=== PATIENT | female | born 1990 | race American Indian/Alaskan Native ===

== ENCOUNTER 2016-12-27 14:30 | Emergency (ER) | payer MEDICAID ==
[2016-12-27] MEDS ORDERED: MOTRIN PO ONE (20:46)
[2016-12-27] MEDS ORDERED: AUGMENTIN 875 MG PO ONE (20:46)
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
[2016-12-27 21:13] VITALS: BP 110/70
== END 2016-12-27 21:13 | disposition home or self-care (01) ==
LOC: ED 14:30
DX: S61.452A Open bite of left hand, initial encounter (principal); L65.8 Other specified nonscarring hair loss; Y04.1XXA Assault by human bite, initial encounter; Y93.89 Activity, other specified; Y99.8 Other external cause status; Y92.89 Other specified places as the place of occurrence of the external cause
CPT/HCPCS: 99282

== ENCOUNTER 2017-03-12 09:06 | Emergency (ER) | payer MEDICAID ==
[2017-03-12 09:19] VITALS: BP 106/70
== END 2017-03-12 11:44 | disposition home or self-care (01) ==
LOC: ED 09:06
DX: J32.9 Chronic sinusitis, unspecified (principal); J30.9 Allergic rhinitis, unspecified
CPT/HCPCS: 99282

== ENCOUNTER 2017-10-10 12:07 | Emergency (ER) | payer MEDICAID ==
[2017-10-10] MEDS ORDERED: DUONEB *Not for PRN Use IH ONE (12:50)
--- NOTE | 2017-10-10 14:34 | Emergency Department Report ---
ED N/V/D HPI - General Chief complaint: Nausea/Vomiting/Diarrhea Stated complaint: ALCOHOL POISON Time Seen by Provider: 10/10/17 14:13 Source: patient Mode of arrival: Ambulatory Limitations: No Limitations - History of Present Illness Initial comments: Patient here report nausea and vomiting 24 hours. She said she had alcohol to drink and she woke up this morning with more nausea and she is vomiting greenish drainage that feels better and her mouth. She also reports that she has a headache. Pain is located to the front of her head and comes and goes worse with vomiting. Denies any abdominal pain or back pain. Denies any urinary burning frequency or urgency. Last menstrual period was 09/17/2017. Denies any chest pain or shortness of breath. Denies any cough. Denies any head injury. Patient denies any medical problems. Pain is 4 out of 10. No [id number] condition taken for nausea . MD complaint: nausea, vomiting Onset/Timin -: days(s) Description of Vomiting: bilious Associated Abdominal Pain: No (headache) Radiation: none Severity: mild Pain Scale: 4 Quality: aching Consistency: intermittent Improves with: none Worsens with: none Context: alcohol abuse Associated Symptoms: headaches, loss of appetite, nausea/vomiting. denies: myalgias, chest pain, cough, diaphoresis, fever/chills, malaise, rash, dysuria, shortness of breath, syncope, weakness - Related Data Previous Rx's Medication Instructions Recorded Last Taken Type Vit-Fe Fumar-FA [ 1 each PO QDAY #90 tablet 11/30/14 Unknown Rx Vitamin] Acetaminophen/Codeine [Tylenol #3] 1 tab PO Q6H PRN #8 tab 12/27/16 Unknown Rx Amoxicillin/K Clav Tab [Augmentin 1 tab PO Q12HR #14 tab 12/27/16 Unknown Rx 875 mg] Ibuprofen [Motrin] 600 mg PO Q8H PRN #20 tablet 12/27/16 Unknown Rx Amoxicillin/K Clav Tab [Augmentin 1 tab PO Q12HR #20 tab 03/12/17 Unknown Rx 875 mg] Fluticasone [Flonase] 1 spray NS QDAY #1 bottle 03/12/17 Unknown Rx Ibuprofen [Motrin 800 MG tab] 800 mg PO Q8HR PRN #30 tablet 03/12/17 Unknown Rx Loratadine 10 mg PO DAILY #30 tablet 03/12/17 Unknown Rx Metoclopramide [Reglan] 10 mg PO TID PRN #30 tab 03/12/17 Unknown Rx Dicyclomine [Bentyl] 40 mg PO TID 3 Days #9 tablet 10/10/17 Unknown Rx Nitrofurantoin Monohyd/M-Cryst 100 mg PO Q12H 7 Days #14 capsule 10/10/17 Unknown Rx [Macrobid 100 mg Capsule] Promethazine [Phenergan TAB] 25 mg PO Q6H PRN 4 Days #12 tablet 10/10/17 Unknown Rx Allergies Allergy/AdvReac Type Severity Reaction Status Date / Time No Known Allergies Allergy Verified 11/30/14 10:43 ED Review of Systems ROS: Stated complaint: ALCOHOL POISON Other details as noted in HPI Comment: All other systems reviewed and negative Constitutional: no symptoms reported Eyes: denies: eye pain, eye discharge ENT: denies: ear pain, throat pain, congestion Respiratory: no symptoms reported Cardiovascular: denies: chest pain, palpitations, dyspnea on exertion, orthopnea , edema, syncope, paroxysmal nocturnal dyspnea Gastrointestinal: nausea, vomiting. denies: abdominal pain, diarrhea, constipation, hematemesis, melena, hematochezia Genitourinary: denies: urgency, dysuria, frequency, hematuria, discharge Musculoskeletal: denies: back pain, joint swelling, arthralgia, myalgia Skin: denies: rash Neurological: headache. denies: weakness, numbness, paresthesias, confusion, abnormal gait, vertigo ED Past Medical Hx - Past Medical History Previous Medical History?: No Hx Hypertension: No Hx CVA: No Hx Heart Attack/AMI: No Hx Congestive Heart Failure: No Hx Diabetes: No Hx Deep Vein Thrombosis: No Hx Pulmonary Embolism: No Hx GERD: No Hx Liver Disease: No Hx Renal Disease: No Hx of Cancer: No Hx Sickle Cell Disease: No Hx Arthritis: No Hx Headaches / Migraines: No Hx Seizures: No Hx Psychiatric Treatment: No Hx Asthma: No Hx COPD: No Hx Tuberculosis: No Hx Dementia: No Hx HIV: No - Surgical History Past Surgical History?: No Hx Coronary Stent: No Hx Open Heart Surgery: No Hx Pacemaker: No Hx Internal Defibrillator: No Hx Cholecystectomy: No Hx Appendectomy: No Hx Breast Surgery: No - Social History Smoking Status: Never Smoker Substance Use Type: Alcohol - Medications Home Medications: Home Medications Medication Instructions Recorded Confirmed Last Taken Type Vit-Fe Fumar-FA [ 1 each PO QDAY #90 tablet 11/30/14 Unknown Rx Vitamin] Acetaminophen/Codeine [Tylenol #3] 1 tab PO Q6H PRN #8 tab 12/27/16 Unknown Rx Amoxicillin/K Clav Tab [Augmentin 1 tab PO Q12HR #14 tab 12/27/16 Unknown Rx 875 mg] Ibuprofen [Motrin] 600 mg PO Q8H PRN #20 tablet 12/27/16 Unknown Rx Amoxicillin/K Clav Tab [Augmentin 1 tab PO Q12HR #20 tab 03/12/17 Unknown Rx 875 mg] Fluticasone [Flonase] 1 spray NS QDAY #1 bottle 03/12/17 Unknown Rx Ibuprofen [Motrin 800 MG tab] 800 mg PO Q8HR PRN #30 tablet 03/12/17 Unknown Rx Loratadine 10 mg PO DAILY #30 tablet 03/12/17 Unknown Rx Metoclopramide [Reglan] 10 mg PO TID PRN #30 tab 03/12/17 Unknown Rx Dicyclomine [Bentyl] 40 mg PO TID 3 Days #9 tablet 10/10/17 Unknown Rx Nitrofurantoin Monohyd/M-Cryst 100 mg PO Q12H 7 Days #14 capsule 10/10/17 Unknown Rx [Macrobid 100 mg Capsule] Promethazine [Phenergan TAB] 25 mg PO Q6H PRN 4 Days #12 tablet 10/10/17 Unknown Rx ED Physical Exam - General Limitations: No Limitations General appearance: alert, in no apparent distress - Head Head exam: Present: atraumatic, normocephalic, normal inspection, other (normal head exam) - Eye Eye exam: Present: normal appearance, PERRL, EOMI. Absent: nystagmus, periorbital swelling, periorbital tenderness Pupils: Present: normal accommodation - ENT ENT exam: Present: normal exam, normal orophraynx, mucous membranes dry, TM's normal bilaterally, normal external ear exam - Neck Neck exam: Present: normal inspection, full ROM, other (no C-spine tenderness). Absent: tenderness, meningismus, lymphadenopathy, thyromegaly - Respiratory Respiratory exam: Present: normal lung sounds bilaterally. Absent: respiratory distress, chest wall tenderness, accessory muscle use - Cardiovascular Cardiovascular Exam: Present: regular rate, normal rhythm, normal heart sounds. Absent: systolic murmur, diastolic murmur - GI/Abdominal GI/Abdominal exam: Present: soft, normal bowel sounds. Absent: distended, tenderness, rigid, organomegaly, mass, bruit, pulsatile mass - Extremities Exam Extremities exam: Present: normal inspection, full ROM, normal capillary refill , other (+2+ systolic extremities. No neurovascular compromise. No clubbing, cyanosis or edema.). Absent: tenderness, pedal edema, joint swelling, calf tenderness - Back Exam Back exam: Present: normal inspection, full ROM, other (ambulates without any difficulties). Absent: tenderness, CVA tenderness (R), CVA tenderness (L), muscle spasm, paraspinal tenderness, vertebral tenderness, rash noted - Neurological Exam Neurological exam: Present: alert, oriented X3, normal gait, reflexes normal. Absent: motor sensory deficit - Expanded Neurological Exam Expanded Neurological exam: Absent: innattentive, memory loss-remote event, memory loss- recent event, ataxia, receptive aphasia, expressive aphasia, total aphasia, tremor, protecting the airway Patient oriented to: Present: person, place, time Speech: Present: fluid speech Cranial nerves: EOM's Intact: Normal, Gag Reflex: Normal, Tongue Deviation: Normal, Nystagmus: Normal, Facial Sensation: Normal Cerebellar function: Romberg: Normal Upper motor neuron: Pronator Drift: Normal, Sensory Extinction: Normal Sensory exam: Upper Extremity Light Touch: Normal, Upper Extremity Temperature: Normal, UE 2 Point Discrimination: Normal, Lower Extremity Light Touch: Normal, Lower Extremity Temperature: Normal, LE 2 Point Discrimination: Normal Motor strength exam: RUE: 5, LUE: 5, RLE: 5, LLE: 5 DTR: bicep (R): 2+, bicep (L): 2+, tricep (R): 2+, tricep (L): 2+, knee (R): 2+ , knee (L): 2+, ankle (R): 2+, ankle (L): 2+ Best Eye Response ([place]): (4) open spontaneously Best Motor Response ([place]): (6) obeys commands Best Verbal Response ([place]): (5) oriented Gas[place] Total: 15 - Psychiatric Psychiatric exam: Present: normal affect, normal mood - Skin Skin exam: Present: warm, dry, intact, normal color. Absent: rash ED Course Vital Signs 10/10/17 10/10/17 10/10/17 12:36 14:50 15:43 Temperature 98.2 F Pulse Rate 88 71 Respiratory 16 18 16 Rate Blood Pressure 108/65 98/56 Blood Pressure [Left] Blood Pressure 108/65 [Right] O2 Sat by Pulse 100 100 Oximetry 10/10/17 17:06 Temperature Pulse Rate Respiratory Rate Blood Pressure Blood Pressure 110/68 [Left] Blood Pressure [Right] O2 Sat by Pulse Oximetry Vital Signs 10/10/17 10/10/17 10/10/17 12:36 14:50 15:43 Temperature 98.2 F Pulse Rate 88 71 Respiratory 16 18 16 Rate Blood Pressure 108/65 98/56 Blood Pressure [Left] Blood Pressure 108/65 [Right] O2 Sat by Pulse 100 100 Oximetry 10/10/17 17:06 Temperature Pulse Rate Respiratory Rate Blood Pressure Blood Pressure 110/68 [Left] Blood Pressure [Right] O2 Sat by Pulse Oximetry - Reevaluation(s) Reevaluation #1: 10/10/17 17:07 Patient given IV fluids 1 L normal saline emergency room, Zofran 4 mg IV, Bentyl 20 mg by mouth and Tylenol plain 975 mg by mouth in emergency room. She says she is feeling better. Nausea and vomiting resolved and headache has resolved. Patient is tolerating crackers and oral liquids in emergency room without any vomiting. Patient with trace leukocyte Estrace and 1+ bacteria in urine, CBC and CMP is stable. Negative . ED Medical Decision Making - Lab Data Result diagrams: 10/10/17 14:41 10/10/17 14:41 Lab Results 10/10/17 10/10/17 10/10/17 Range/Units 14:30 14:41 14:41 WBC 5.8 (4.5-11.0) K/mm3 RBC 5.13 H (3.65-5.03) M/mm3 Hgb 13.7 (10.1-14.3) gm/dl Hct 42.0 (30.3-42.9) % MCV 82 (79-97) fl MCH 27 L (28-32) pg MCHC 33 (30-34) % RDW 14.2 (13.2-15.2) % Plt Count 254 (140-440) K/mm3 Lymph % (Auto) 51.7 H (13.4-35.0) % [place] % (Auto) 8.0 H (0.0-7.3) % Eos % (Auto) 0.8 (0.0-4.3) % Baso % (Auto) 1.3 (0.0-1.8) % Lymph # 3.0 (1.2-5.4) K/mm3 [place] # 0.5 (0.0-0.8) K/mm3 Eos # 0.0 (0.0-0.4) K/mm3 Baso # 0.1 (0.0-0.1) K/mm3 Seg Neutrophils % 38.2 L (40.0-70.0) % Seg Neutrophils # 2.2 (1.8-7.7) K/mm3 Sodium 143 (137-145) mmol/L Potassium 4.5 (3.6-5.0) mmol/L Chloride 104.0 (98-107) mmol/L Carbon Dioxide 26 (22-30) mmol/L Anion Gap 18 mmol/L BUN 13 (7-17) mg/dL Creatinine 0.6 L (0.7-1.2) mg/dL Estimated GFR > 60 ml/min BUN/Creatinine Ratio 22 % Glucose 81 (65-100) mg/dL Calcium 9.3 (8.4-10.2) mg/dL Total Bilirubin 0.20 (0.1-1.2) mg/dL AST 38 (5-40) units/L ALT 25 (7-56) units/L Alkaline Phosphatase 67 (35-129) units/L Total Protein 8.1 (6.3-8.2) g/dL Albumin 4.7 (3.9-5) g/dL Albumin/Globulin Ratio 1.4 % Lipase 28 (13-60) units/L HCG, Qual (Negative) Urine Color Yellow (Yellow) Urine Turbidity Clear (Clear) Urine pH 7.0 (5.0-7.0) Ur Specific [place] 1.027 (1.003-1.030) Urine Protein 100 mg/dl (Negative) mg/dL Urine Glucose (UA) Neg (Negative) mg/dL Urine Ketones Tr (Negative) mg/dL Urine Blood Neg (Negative) Urine Nitrite Neg (Negative) Urine Bilirubin Neg (Negative) Urine Urobilinogen < 2.0 (<2.0) mg/dL Ur Leukocyte Esterase Tr (Negative) Urine WBC (Auto) 2.0 (0.0-6.0) /HPF Urine RBC (Auto) 2.0 (0.0-6.0) /HPF U Epithel Cells (Auto) 4.0 (0-13.0) /HPF Urine Bacteria (Auto) 1+ (Negative) /HPF Urine Mucus Few /HPF 10/10/17 Range/Units 14:41 WBC (4.5-11.0) K/mm3 RBC (3.65-5.03) M/mm3 Hgb (10.1-14.3) gm/dl Hct (30.3-42.9) % MCV (79-97) fl MCH (28-32) pg MCHC (30-34) % RDW (13.2-15.2) % Plt Count (140-440) K/mm3 Lymph % (Auto) (13.4-35.0) % [place] % (Auto) (0.0-7.3) % Eos % (Auto) (0.0-4.3) % Baso % (Auto) (0.0-1.8) % Lymph # (1.2-5.4) K/mm3 [place] # (0.0-0.8) K/mm3 Eos # (0.0-0.4) K/mm3 Baso # (0.0-0.1) K/mm3 Seg Neutrophils % (40.0-70.0) % Seg Neutrophils # (1.8-7.7) K/mm3 Sodium (137-145) mmol/L Potassium (3.6-5.0) mmol/L Chloride (98-107) mmol/L Carbon Dioxide (22-30) mmol/L Anion Gap mmol/L BUN (7-17) mg/dL Creatinine (0.7-1.2) mg/dL Estimated GFR ml/min BUN/Creatinine Ratio % Glucose (65-100) mg/dL Calcium (8.4-10.2) mg/dL Total Bilirubin (0.1-1.2) mg/dL AST (5-40) units/L ALT (7-56) units/L Alkaline Phosphatase (35-129) units/L Total Protein (6.3-8.2) g/dL Albumin (3.9-5) g/dL Albumin/Globulin Ratio % Lipase (13-60) units/L HCG, Qual Negative (Negative) Urine Color (Yellow) Urine Turbidity (Clear) Urine pH (5.0-7.0) Ur Specific [place] (1.003-1.030) Urine Protein (Negative) mg/dL Urine Glucose (UA) (Negative) mg/dL Urine Ketones (Negative) mg/dL Urine Blood (Negative) Urine Nitrite (Negative) Urine Bilirubin (Negative) Urine Urobilinogen (<2.0) mg/dL Ur Leukocyte Esterase (Negative) Urine WBC (Auto) (0.0-6.0) /HPF Urine RBC (Auto) (0.0-6.0) /HPF U Epithel Cells (Auto) (0-13.0) /HPF Urine Bacteria (Auto) (Negative) /HPF Urine Mucus /HPF Urine culture pending - Medical Decision Making ED course: Pt here reporting nausea and vomiting in with headache after drinking alcohol. This is something going on for 24 hours. Patient says she is vomiting bile. She was given IV fluid normal saline saline 1 L, Zofran 4 mg IV, Benadryl 20 mg by mouth and Tylenol plain 975 mg by mouth. Patient states that she felt better. Vital signs are stable and she is afebrile. Headache is resolved. I discussed the patient she should avoid drinking and I' ll call in excess. Also discussed diagnosis and treatment plan and discussed with her that she is a urinary tract infection as urine came back with positive bacteria and positive leukocyte Estrace. Also has mild dehydration with positive trace ketones in urine. Patient was unscented discharge instruction sheet and treatment plan. Discharged home in stable condition with prescription for Phenergan, Macrobid and Bentyl and to increase her fluid intake and follow up with primary care physician in 2-3 days. Critical care attestation.: If time is entered above; I have spent that time in minutes in the direct care of this critically ill patient, excluding procedure time. ED Disposition Clinical Impression: Mild dehydration, Ketonuria Nausea & vomiting Qualifiers: Vomiting type: unspecified Vomiting Intractability: non-intractable Qualified Code(s): R11.2 - Nausea with vomiting, unspecified Acute cystitis Qualifiers: Hematuria presence: without hematuria Qualified Code(s): N30.00 - Acute cystitis without hematuria Headache Qualifiers: Headache type: unspecified Headache chronicity pattern: acute headache Intractability: not intractable Qualified Code(s): R51 - Headache Disposition: DC-01 TO HOME OR SELFCARE Is pt being admited?: No Does the pt Need Aspirin: No Condition: Stable Instructions: Dehydration (ED), Urinary Tract Infection in Children (ED), Acute Nausea and Vomiting (ED) Additional Instructions: Increase fluid intake Eat diet to include banana, rice, apple sauce and toast Please do not drive or operate heavy [email or web address] while taking phenergan as this causes drowsiness Bentyl will help to calm stomach Avoid drinking alcohol in excess Take macrobid for bladder infection Follow up with PCP in 2-3 days Prescriptions: Dicyclomine [Bentyl] 40 mg PO TID 3 Days #9 tablet Nitrofurantoin Monohyd/M-Cryst [Macrobid 100 mg Capsule] 100 mg PO Q12H 7 Days # 14 capsule Promethazine [Phenergan TAB] 25 mg PO Q6H PRN 4 Days #12 tablet PRN Reason: Nausea Referrals: [facility] [Outside] - 2-3 Days PRIMARY CARE,MD [Primary Care Provider] - 2-3 Days Forms: Work/School Release Form(ED)
[2017-10-10] MEDS ORDERED: NACL 0.9% 1000 ML 1,000 ML IV ONE (14:35)
[2017-10-10] MEDS ORDERED: ZOFRAN IV ONE (14:35)
[2017-10-10] MEDS ORDERED: TYLENOL PO ONE (14:36)
[2017-10-10] MEDS ORDERED: BENTYL PO ONE (14:36)
[2017-10-10 14:50] LABS: Bacteria,Urine 1+ /HPF (Negative); Bilirubin,Urine NEG (Negative); Blood,Urine NEG (Negative); Color,Urine Yellow (Yellow); Mucus,Urine FEW /HPF; Nitrite,Urine NEG (Negative); Urobilinogen,Urine < 2.0 mg/dL (<2.0)
[2017-10-10 14:57] LABS: Basophils # (Auto) 0.1 K/mm3 (0.0-0.1); Basophils % (Auto) 1.3 % (0.0-1.8); Eosinophils % (Auto) 0.8 % (0.0-4.3); Hemoglobin 13.7 gm/dl (10.1-14.3); Lymphocytes % (Auto) 51.7 % (13.4-35.0); Mean Corpuscular HGB Conc 33 % (30-34); Mean Corpuscular Hemoglobin 27 pg (28-32); Mean Corpuscular Volume 82 fl (79-97); Monocytes # (Auto) 0.5 K/mm3 (0.0-0.8); Platelet Count 254 K/mm3 (140-440); Red Blood Count 5.13 M/mm3 (3.65-5.03); Red Cell Distribution Width 14.2 % (13.2-15.2)
[2017-10-10 15:17] LABS: Alanine Aminotransferase 25 units/L (7-56); Albumin 4.7 g/dL (3.9-5); BUN/Creatinine Ratio 22; Blood Urea Nitrogen 13 mg/dL (7-17); Calcium 9.3 mg/dL (8.4-10.2); Hemolysis Index 12; Lipase 28 units/L (13-60)
[2017-10-10 17:07] VITALS: BP 110/68
== END 2017-10-10 17:43 | disposition home or self-care (01) ==
LOC: ED 12:07
DX: E86.0 Dehydration (principal); R11.2 Nausea with vomiting, unspecified; N30.00 Acute cystitis without hematuria; R51 Headache; R82.4 Acetonuria
CPT/HCPCS: 36415; 80053; 81001; 83690; 84703; 85025; 87086; 96361; 96374; 99283; J2405; J7030

== ENCOUNTER 2018-11-05 13:16 | Outpatient (CLI) | payer MEDICAID ==
--- NOTE | 2018-11-05 17:32 | Ultrasound Report ---
FINAL REPORT EXAM: US OB BPP WO NON-STRESS HISTORY: Please do BPP COMPARISON: None available. TECHNIQUE: Several real-time grayscale and color Doppler images were obtained. FINDINGS: Normal tone, breathing movements, movements, amniotic fluid volume. heart rat e 150 beats per minute. SOPHIA 18.1 centimeters. presentation cephalic. IMPRESSION: Biophysical profile score 8/8.
--- NOTE | 2018-11-05 17:34 | Ultrasound Report ---
FINAL REPORT EXAM: US OB LIMITED HISTORY: SOPHIA COMPARISON: None available. TECHNIQUE: Several real-time grayscale and color Doppler images were obtained. FINDINGS: Single live IUP. Limited exam performed for evaluation of SOPHIA and positioning. Normal SOPHIA 18.1 centimeters. presentation cephalic. heart rate 150 beats per minute. IMPRESSION: presentation cephalic. Normal SOPHIA.
[2018-11-06 14:10] VITALS: BP 108/64
--- NOTE | 2018-11-07 06:41 | Event Note ---
Date: 11/07/18 Triage Note for 11/05/2018: 28 year old presents to triage at 37 weeks, 4 days gestation complaining of discharge from vagina. Patient states it is mucous discharge, not watery. Patient denies vaginal bleeding. Pt. denies regular contractions. No other complaints. Patient is well appearing, alert, oriented. Afebrile. VSS. Abdomen soft, nontender. Active movement. No regular contractions noted. SSE performed: no pooling noted, negative fern test. SOPHIA 18 cm. SVE 2/70/-2 (exam by RN). Reassuring heart rate tracing. Discussed with patient daily movement counting, warning signs of late , need to follow up at [facility], signs of labor. Patient voiced understanding of instructions.
== END 2018-11-05 18:13 | disposition home or self-care (01) ==
LOC: TRG 13:16
PROVIDERS: ATTEND Obstetrics & Gynecology
DX: O47.03 False labor before 37 completed weeks of gestation, third trimester (principal); O42.913 Preterm premature rupture of membranes, unspecified as to length of time between rupture and onset of labor, third trimester; Z3A.37 37 weeks gestation of pregnancy
CPT/HCPCS: 59025; 76815; 76819

== ENCOUNTER 2018-11-06 20:28 | Inpatient (IN) | payer MEDICAID ==
[2018-11-06] MEDS ORDERED: LACTATED RINGERS 1,000 ML ONE (20:51)
[2018-11-06] MEDS ORDERED: PITOCin/NS 20 UNIT/1000ML DRIP 20,000 MILLIUNITS/1,000 ML BAG IV ONE (20:52)
[2018-11-06] MEDS ORDERED: MINERAL OIL ONE (20:53)
[2018-11-06] MEDS ORDERED: SUBLIMAZE IV PRN (21:19)
[2018-11-06] MEDS ORDERED: AMPICILLIN/NS 2 GM/100 ML 2 GM/100 ML BAG IV ONE (21:19)
[2018-11-06] MEDS ORDERED: STADOL IV PRN (21:19)
[2018-11-06 21:46] LABS: Hematocrit 34.4 % (30.3-42.9); Hemoglobin 11.3 gm/dl (10.1-14.3); Mean Corpuscular HGB Conc 33 % (30-34); Mean Corpuscular Volume 78 fl (79-97); Platelet Count 244 K/mm3 (140-440); Red Blood Count 4.39 M/mm3 (3.65-5.03); Red Cell Distribution Width 14.5 % (13.2-15.2)
[2018-11-06] MEDS: LACTATED RINGERS 1,000 ML IV SCH (21:47)
[2018-11-06] MEDS ORDERED: PITOCin/NS 20 UNIT/1000ML DRIP 20 UNITS/1,000 ML BAG IV SCH (22:00)
[2018-11-06] MEDS ORDERED: NARCAN 2 MG/2 ML IV PRN (22:46)
--- NOTE | 2018-11-06 22:46 | Anesthesia Consultation ---
Anesthesia Consult and Med Hx Date of service: 11/06/18 - Airway Anesthetic Teeth Evaluation: Good ROM Head & Neck: Adequate Mental/Hyoid Distance: Adequate Mallampati Class: Class II Intubation Access Assessment: Probably Good - Pre-Operative Health Status ASA Pre-Surgery Classification: ASA2 Proposed Anesthetic Plan: Epidural, Spinal - Pulmonary Hx Asthma: No COPD: No Hx Pneumonia: No - Cardiovascular System Hx Hypertension: No Hx Heart Attack/AMI: No Hx Pacemaker: No Hx Internal Defibrillator: No Hx Valvular Heart Disease: No - Central Nervous System Hx Seizures: No CVA: No Hx Psychiatric Problems: No - Endocrine Hx Renal Disease: No Hx End Stage Renal Disease: No Hx Liver Disease: No Hx Hypothyroidism: No Hx Hyperthyroidism: No - Hematic Hx Anemia: No Hx Sickle Cell Disease: No - Other Systems Hx Alcohol Use: No Hx Substance Use: No Hx Cancer: No
[2018-11-06] MEDS: fentaNYL-BUPIV 2 MCG/ML-0.125% 200 MCG/100 ML BAG EPIDURAL SCH (23:31)
[2018-11-07] MEDS: LACTATED RINGERS 1,000 ML IV SCH ×2 (02:30→06:19)
[2018-11-07] MEDS: AMPICILLIN/NS 1 GM/50 ML 1 GM/50 ML BAG IV SCH ×2 (02:31→06:18)
[2018-11-07] MEDS ORDERED: TYLENOL PO ONE (02:41)
--- NOTE | 2018-11-07 05:49 | History and Physical Report ---
History of Present Illness Date of examination: 11/07/18 Date of admission: 11/06/18 20:53 Chief complaint: contractions History of present illness: 28y/o @ 37+6 weeks presents with regular uterine contractions and advanced cervical dilation of 5cm. She denied leakage of fluid. The patient receives care with another provider. She states her course was uncomplicated. Past History Past Medical History: no pertinent history Past Surgical History: no surgical history Social history: single - Obstetrical History Expected Date of Delivery: 11/22/18 Actual Gestation: 37 Week(s) 6 Day(s) : 6 Para: 4 Hx # Term Pregnancies: 4 Number of Pregnancies: 0 Spontaneous Abortions: 0 Induced : 1 Number of Living Children: 4 Medications and Allergies Allergies Allergy/AdvReac Type Severity Reaction Status Date / Time No Known Allergies Allergy Verified 11/30/14 10:43 Home Medications Medication Instructions Recorded Confirmed Last Taken Type Vit-Fe Fumar-FA [ 1 each PO QDAY #90 tablet 11/30/14 Unknown Rx Vitamin] Acetaminophen/Codeine [Tylenol #3] 1 tab PO Q6H PRN #8 tab 12/27/16 Unknown Rx Amoxicillin/K Clav Tab [Augmentin 1 tab PO Q12HR #14 tab 12/27/16 Unknown Rx 875 mg] Ibuprofen [Motrin] 600 mg PO Q8H PRN #20 tablet 12/27/16 Unknown Rx Amoxicillin/K Clav Tab [Augmentin 1 tab PO Q12HR #20 tab 03/12/17 Unknown Rx 875 mg] Fluticasone [Flonase] 1 spray NS QDAY #1 bottle 03/12/17 Unknown Rx Ibuprofen [Motrin 800 MG tab] 800 mg PO Q8HR PRN #30 tablet 03/12/17 Unknown Rx Loratadine 10 mg PO DAILY #30 tablet 03/12/17 Unknown Rx Metoclopramide [Reglan] 10 mg PO TID PRN #30 tab 03/12/17 Unknown Rx Dicyclomine [Bentyl] 40 mg PO TID 3 Days #9 tablet 10/10/17 Unknown Rx Nitrofurantoin Monohyd/M-Cryst 100 mg PO Q12H 7 Days #14 capsule 10/10/17 Unknown Rx [Macrobid 100 mg Capsule] Promethazine [Phenergan TAB] 25 mg PO Q6H PRN 4 Days #12 tablet 10/10/17 Unknown Rx Active Meds: Active Medications Butorphanol Tartrate (Stadol) 2 mg IV Q2H PRN PRN Reason: Pain , Severe (7-10) Ephedrine Sulfate (Ephedrine Sulfate) 10 mg IV Q2M PRN PRN Reason: Hypotension Fentanyl (Sublimaze) 100 mcg IV Q2H PRN PRN Reason: Labor Pain Lactated Ringer's (Lactated Ringers) 1,000 mls @ 125 mls/hr IV DIRECT TIFFANY Last Admin: 11/07/18 02:30 Dose: 125 mls/hr Documented by: Oxytocin/Sodium Chloride (Pitocin/Ns 20 Unit/1000ml Drip) 20 units in 1,000 mls @ 125 mls/hr IV DIRECT TIFFANY Ampicillin Sodium (Ampicillin/Ns 1 Gm/50 Ml) 1 gm in 50 mls @ 100 mls/hr IV Q4HR TIFFANY; Protocol Last Admin: 11/07/18 02:31 Dose: 100 mls/hr Documented by: Fentanyl/Bupivacaine/Sodium Chlor (Fentanyl-Bupiv 2 Mcg/Ml-0.125%) 200 mcg in 100 mls @ 12 mls/hr EPIDURAL TITR TIFFANY; Protocol Last Admin: 11/06/18 23:31 Dose: 12 mls/hr Documented by: Naloxone HCl (Narcan 2 Mg/2 Ml) 0.2 mg IV Q5M PRN PRN Reason: Respiratory sedation Review of Systems All systems: negative Genitourinary: contractions - Vital Signs Vital signs: Vital Signs Pulse BP 107 H 127/73 11/06/18 20:36 11/06/18 20:36 Temp Pulse Resp BP Pulse Ox 93 H 18 112/69 100 11/07/18 05:43 11/06/18 23:30 11/07/18 05:28 11/07/18 05:43 - Physical Exam Breasts: Positive: deferred Cardiovascular: Regular rate Lungs: Positive: Clear to auscultation Results Result Diagrams: 11/06/18 21:31 Abnormal lab results 11/06/18 Range/Units 21:31 MCV 78 L (79-97) fl MCH 26 L (28-32) pg All other labs normal. Assessment and Plan - Patient Problems (1) Active labor at term Current Visit: Yes Status: Acute Plan to address problem: admit to L&D and initiate IV antibiotics
[2018-11-07] MEDS ORDERED: PITOCin/NS 30 UNIT/500ML 30,000 MILLIUNITS/500 ML BAG IV ONE (06:06)
[2018-11-07] MEDS: fentaNYL-BUPIV 2 MCG/ML-0.125% 200 MCG/100 ML BAG EPIDURAL SCH (06:34)
--- NOTE | 2018-11-07 08:23 | Procedure Note ---
OB Delivery Note - Delivery Date of Delivery: 11/07/18 Surgeon: DAV ART Estimated blood loss: other (150ml) - Vaginal Delivery presentation: vertex Delivery position: OA Intrapartum events: none Delivery augmentation: rupture of membranes, pitocin Delivery monitor: external FHT, internal FHT, internal uterine Route of delivery: Delivery placenta: spontaneous Delivery cord: 3 umbilical vessels Episiotomy: none Delivery laceration: none Anesthesia: epidural Delivery comments: Patient progressed to C/C/+2 and pushed to deliver a liveborn male with apgars of 8/9 and weight of 7lbs 3oz. After delivery of the shoulders, the head delivered without difficulty. The was bulb suctioned. The cord clamped and cut and placed on the patient's chest. The placenta delivered spontaneously intact with a 3VC. No lacerations were noted. EBL 150ml - A at 1 minute: 8 at 5 minutes: 9 Infant Gender: Male (weight 7lbs 3oz)
[2018-11-07] MEDS ORDERED: TUCKS PAD TP PRN (08:24)
[2018-11-07] MEDS ORDERED: PHENERGAN PO PRN (08:24)
[2018-11-07] MEDS ORDERED: TYLENOL PO PRN (08:24)
[2018-11-07] MEDS ORDERED: BENADRYL PO PRN (08:24)
[2018-11-07] MEDS ORDERED: LANSINOH TP PRN (08:24)
[2018-11-07] MEDS ORDERED: ZOFRAN IV PRN (08:24)
[2018-11-07] MEDS ORDERED: PHENERGAN PR PRN (08:24)
[2018-11-07] MEDS ORDERED: SODIUM CHLORIDE FLUSH SYRINGE 10 ML IV NR (09:00)
[2018-11-07] MEDS ORDERED: DULCOLAX PR PRN (10:00)
[2018-11-07] MEDS: NORCO 5/325 PO PRN (12:25)
[2018-11-07] MEDS: IBUPROFEN PO SCH ×2 (12:27→18:53)
[2018-11-07 21:11] LABS: Amphetamine Screen,Urine PRESUMPTIVE NEGATIVE; Benzodiazepines Screen,Urine PRESUMPTIVE NEGATIVE; Cannabinoid Screen,Urine PRESUMPTIVE NEGATIVE; Cocaine Screen,Urine PRESUMPTIVE NEGATIVE; Methadone Screen,Urine PRESUMPTIVE NEGATIVE; Opiate Screen,Urine PRESUMPTIVE NEGATIVE
[2018-11-07 21:29] LABS: Hematocrit 25.2 % (30.3-42.9); Hemoglobin 8.3 gm/dl (10.1-14.3)
[2018-11-07] MEDS ORDERED: MILK OF MAGNESIA PO PRN (22:00)
[2018-11-08] MEDS: IBUPROFEN PO SCH ×3 (00:18→04:15)
[2018-11-08] MEDS: NORCO 5/325 PO PRN ×2 (00:20→10:49)
--- NOTE | 2018-11-08 13:39 | Progress Note ---
Assessment and Plan - Patient Problems (1) Active labor at term Current Visit: Yes Status: Acute Plan to address problem: routine care Subjective - Subjective Date of service: 11/08/18 Interval history: Patient without complaints. States lochia is decreasing. Pain well controlled Patient reports: appetite normal, voiding normally, pain well controlled [place]: doing well Objective - Vital Signs Latest vital signs: Vital Signs Temp Pulse Resp BP BP Pulse Ox 11/08/18 07:27 97.6 F 95 H 20 100/63 99 11/08/18 02:18 97.2 F L 78 103/62 98 11/08/18 00:20 18 11/08/18 00:18 18 11/07/18 21:38 98.9 F 118 H 18 127/77 97 11/07/18 21:29 97.9 F 92 H 19 120/81 97 11/07/18 16:13 97.8 F 91 H 18 107/70 Intake and Output 11/07/18 11/08/18 11/08/18 22:59 06:59 14:59 Intake Total 360 240 Output Total 750 Balance -390 240 Intake: Oral 360 240 Output: Urine 750 Void 750 Other: Total, Intake Amount 360 120 Total, Output Amount 750 # Voids Void 4 1 1 - Exam Uterus: Present: normal, firm - Labs Labs: Abnormal lab results 11/07/18 Range/Units 20:56 Hgb 8.3 L D (10.1-14.3) gm/dl Hct 25.2 L D (30.3-42.9) %
--- NOTE | 2018-11-08 13:41 | Discharge Summary ---
Providers - Providers Date of Admission: 11/06/18 20:53 Date of discharge: 11/09/18 Attending physician: DAV ART Primary care physician: DAV ART Hospitalization Reason for admission: active labor Delivery: Discharge diagnosis: IUP at term delivered Hospital course: Patient admitted in active labor as a walk in patient. Had . uncomplicated. Condition at discharge: Good Disposition: DC-01 TO HOME OR SELFCARE - Discharge Diagnoses (1) Active labor at term Status: Acute Plan - Discharge Medications Prescriptions: Ferrous Sulfate [Feosol 325 MG tab] 325 mg PO BID #60 tablet HYDROcodone/ACETAMINOPHEN [[place] 5-325 Tablet] 1 each PO Q8H PRN #20 tablet PRN Reason: Pain, Mild (1-3) Ibuprofen [Motrin] 800 mg PO Q8HR PRN #60 tablet PRN Reason: Pain, Mild (1-3) - Provider Discharge Summary Activity: no sex for 6 weeks, no heavy lifting 4 weeks, no strenuous exercise Diet: routine Instructions: routine Additional instructions: [] Smoking cessation referral if applicable(refer to patient education folder for contact #) [] Refer to [facility] Booklet Call your doctor immediately for: * Fever > 100.5 * Heavy vaginal bleeding ( >1 pad per hour) * Severe persistent headache * Shortness of breath * Reddened, hot, painful area to leg or breast * schedule visit in 4 weeks - Follow up plan
[2018-11-09] MEDS: IBUPROFEN PO SCH ×2 (12:29→18:37)
[2018-11-09] MEDS ORDERED: DEPO-PROVERA (CONTRACEPTION) IM ONE (18:37)
[2018-11-09 18:47] VITALS: BP 107/68
== END 2018-11-09 19:00 | disposition home or self-care (01) | DRG 775 ==
LOC: TRG 20:28 → LD 20:53 → OB 11-07 10:10
PROVIDERS: ADMIT Obstetrics & Gynecology; ATTEND Obstetrics & Gynecology
PROC: 10E0XZZ Delivery of Products of Conception, External Approach (ICD-10-PCS; principal; 2018-11-07)
PROC: 3E0R3BZ Introduction of Anesthetic Agent into Spinal Canal, Percutaneous Approach (ICD-10-PCS; 2018-11-07)
PROC: 00HU33Z Insertion of Infusion Device into Spinal Canal, Percutaneous Approach (ICD-10-PCS; 2018-11-07)
DX: O80 Encounter for full-term uncomplicated delivery (principal); Z3A.37 37 weeks gestation of pregnancy; Z37.0 Single live birth; Z79.899 Other long term (current) drug therapy
CPT/HCPCS: 36415; 59025; 76815; 76819; 80307; 85014; 85018; 85027; 86592; 86706; 86762; 86850; 86900; 86901; 87806; G0378; J0290; J1050; J2590; J7120

== ENCOUNTER 2021-10-28 08:56 | Emergency (ER) | payer SELFPAY ==
[2021-10-28 09:28] VITALS: BP 141/75
--- NOTE | 2021-10-28 11:52 | Emergency Department Report ---
ED Back Pain/Injury HPI - General Chief Complaint: Back Pain/Injury Stated Complaint: BACK PAINS Time Seen by Provider: 10/28/21 11:43 Source: patient Mode of arrival: Ambulatory Limitations: No Limitations - History of Present Illness Initial Comments: Patient is a 31-year-old female presents emergency room complaints of low back pain for 2 to 3 weeks. She denies any fall, injury, trauma. She denies any fever, nausea, vomiting, diarrhea, urinary symptoms, numbness, weakness, bowel or bladder incontinence. She denies any history of cancer, steroid use, IV drug use. Patient denies any past medical history. No allergies to medications. Last menstrual cycle 10/15/2021 and she denies any possibility of . - Related Data Previous Rx's Medication Instructions Recorded Last Taken Type Vit-Fe Fumar-FA [ 1 each PO QDAY #90 tablet 11/30/14 Unknown Rx Vitamin] Acetaminophen/Codeine [Tylenol #3] 1 tab PO Q6H PRN #8 tab 12/27/16 Unknown Rx Amoxicillin/K Clav Tab [Augmentin 1 tab PO Q12HR #14 tab 12/27/16 Unknown Rx 875 mg] Ibuprofen [Motrin] 600 mg PO Q8H PRN #20 tablet 12/27/16 Unknown Rx Amoxicillin/K Clav Tab [Augmentin 1 tab PO Q12HR #20 tab 03/12/17 Unknown Rx 875 mg] Fluticasone [Flonase] 1 spray NS QDAY #1 bottle 03/12/17 Unknown Rx Ibuprofen [Motrin 800 MG tab] 800 mg PO Q8HR PRN #30 tablet 03/12/17 Unknown Rx Loratadine 10 mg PO DAILY #30 tablet 03/12/17 Unknown Rx Metoclopramide [Reglan] 10 mg PO TID PRN #30 tab 03/12/17 Unknown Rx Dicyclomine [Bentyl] 40 mg PO TID 3 Days #9 tablet 10/10/17 Unknown Rx Nitrofurantoin Monohyd/M-Cryst 100 mg PO Q12H 7 Days #14 capsule 10/10/17 Unknown Rx [Macrobid 100 mg Capsule] Promethazine [Phenergan] 25 mg PO Q6H PRN 4 Days #12 tablet 10/10/17 Unknown Rx Ferrous Sulfate [Feosol 325 MG tab] 325 mg PO BID #60 tablet 11/08/18 Unknown Rx HYDROcodone/ACETAMINOPHEN [[place] 1 each PO Q8H PRN #20 tablet 11/08/18 Unknown Rx 5-325 Tablet] Ibuprofen [Motrin] 800 mg PO Q8HR PRN #60 tablet 11/08/18 Unknown Rx Menthol/Camphor [[place] 1 applicatio TP BID #18 g 10/28/21 Unknown Rx Ointment] Naproxen 375 mg PO BID PRN #14 tab 10/28/21 Unknown Rx methOCARBAMOL [Robaxin TAB] 500 mg PO BID PRN #14 tab 10/28/21 Unknown Rx Allergies Allergy/AdvReac Type Severity Reaction Status Date / Time No Known Allergies Allergy Verified 10/28/21 09:28 ED Review of Systems ROS: Stated complaint: BACK PAINS Other details as noted in HPI Comment: All other systems reviewed and negative ED Past Medical Hx - Past Medical History Hx Hypertension: No Hx CVA: No Hx Heart Attack/AMI: No Hx Congestive Heart Failure: No Hx Diabetes: No Hx Deep Vein Thrombosis: No Hx Pulmonary Embolism: No Hx GERD: No Hx Liver Disease: No Hx Renal Disease: No Hx Sickle Cell Disease: No Hx Arthritis: No Hx Headaches / Migraines: No Hx Seizures: No Hx Psychiatric Treatment: No Hx Asthma: No Hx COPD: No Hx Tuberculosis: No Hx Dementia: No Hx HIV: No - Surgical History Hx Coronary Stent: No Hx Open Heart Surgery: No Hx Pacemaker: No Hx Internal Defibrillator: No Hx Cholecystectomy: No Hx Appendectomy: No Hx Breast Surgery: No - Social History Smoking Status: Never Smoker - Medications Home Medications: Home Medications Medication Instructions Recorded Confirmed Last Taken Type Vit-Fe Fumar-FA [ 1 each PO QDAY #90 tablet 11/30/14 11/07/18 Unknown Rx Vitamin] Acetaminophen/Codeine [Tylenol #3] 1 tab PO Q6H PRN #8 tab 12/27/16 11/07/18 Unknown Rx Amoxicillin/K Clav Tab [Augmentin 1 tab PO Q12HR #14 tab 12/27/16 11/07/18 Unknown Rx 875 mg] Ibuprofen [Motrin] 600 mg PO Q8H PRN #20 tablet 12/27/16 11/07/18 Unknown Rx Amoxicillin/K Clav Tab [Augmentin 1 tab PO Q12HR #20 tab 03/12/17 11/07/18 Unknown Rx 875 mg] Fluticasone [Flonase] 1 spray NS QDAY #1 bottle 03/12/17 11/07/18 Unknown Rx Ibuprofen [Motrin 800 MG tab] 800 mg PO Q8HR PRN #30 tablet 03/12/17 11/07/18 Unknown Rx Loratadine 10 mg PO DAILY #30 tablet 03/12/17 11/07/18 Unknown Rx Metoclopramide [Reglan] 10 mg PO TID PRN #30 tab 03/12/17 11/07/18 Unknown Rx Dicyclomine [Bentyl] 40 mg PO TID 3 Days #9 tablet 10/10/17 11/07/18 Unknown Rx Nitrofurantoin Monohyd/M-Cryst 100 mg PO Q12H 7 Days #14 capsule 10/10/17 11/07/18 Unknown Rx [Macrobid 100 mg Capsule] Promethazine [Phenergan] 25 mg PO Q6H PRN 4 Days #12 tablet 10/10/17 11/07/18 Unknown Rx Ferrous Sulfate [Feosol 325 MG tab] 325 mg PO BID #60 tablet 11/08/18 Unknown Rx HYDROcodone/ACETAMINOPHEN [[place] 1 each PO Q8H PRN #20 tablet 11/08/18 Unknown Rx 5-325 Tablet] Ibuprofen [Motrin] 800 mg PO Q8HR PRN #60 tablet 11/08/18 Unknown Rx Menthol/Camphor [[place] 1 applicatio TP BID #18 g 10/28/21 Unknown Rx Ointment] Naproxen 375 mg PO BID PRN #14 tab 10/28/21 Unknown Rx methOCARBAMOL [Robaxin TAB] 500 mg PO BID PRN #14 tab 10/28/21 Unknown Rx ED Physical Exam - General Limitations: No Limitations General appearance: alert, in no apparent distress - Head Head exam: Present: atraumatic, normocephalic - Eye Eye exam: Present: normal appearance - ENT ENT exam: Present: mucous membranes moist - Neck Neck exam: Present: normal inspection, full ROM. Absent: tenderness, meningismus - Respiratory Respiratory exam: Present: normal lung sounds bilaterally. Absent: respiratory distress, wheezes, rales, rhonchi, stridor, chest wall tenderness, accessory muscle use, decreased breath sounds, prolonged expiratory - Cardiovascular Cardiovascular Exam: Present: regular rate, normal rhythm, normal heart sounds. Absent: systolic murmur, diastolic murmur, rubs, gallop - Back Exam Back exam: Present: normal inspection, full ROM, paraspinal tenderness (bilateral lumbar paraspinal ttp, no midline c-spine, t-spine or l-spine ttp, no step offs, no deformities ). Absent: vertebral tenderness - Neurological Exam Neurological exam: Present: alert, oriented X3, CN II-XII intact, normal gait. Absent: motor sensory deficit - Psychiatric Psychiatric exam: Present: normal affect, normal mood - Skin Skin exam: Present: warm, dry, intact ED Course Vital Signs 10/28/21 09:27 Temperature 98.6 F Pulse Rate 75 Respiratory 16 Rate Blood Pressure 141/75 [Left] O2 Sat by Pulse 100 Oximetry ED Medical Decision Making - Medical Decision Making Patient is a 31-year-old female presents emergency room complaints of low back pain for 2 to 3 weeks. She denies any fall, injury, trauma. She denies any fever, nausea, vomiting, diarrhea, urinary symptoms, numbness, weakness, bowel or bladder incontinence. She denies any history of cancer, steroid use, IV drug use. Patient denies any past medical history. No allergies to medications. Last menstrual cycle 10/15/2021 and she denies any possibility of . Vitals are stable. On exam patient has mild bilateral lumbar paraspinal tenderness, no midline tenderness, no step-offs, no deformities, no focal neuro deficits, ambulatory with out difficulty. Patient has no red flag warning signs of back pain, no trauma, no unexplained weight loss, no fever, no IV drug use, no steroid use, no history of cancer, age is not greater than 50. Patient given prescription for medication. Advised patient please use medication as prescribed. may use ice pack, heating pad, rest, epsom salt bath. do not use heat or ice while using tiger balm. follow up with a primary care doctor. return to emergency room for any new or worsening symptoms. Critical care attestation.: If time is entered above; I have spent that time in minutes in the direct care of this critically ill patient, excluding procedure time. ED Disposition Clinical Impression: Low back pain Qualifiers: Chronicity: acute Back pain laterality: bilateral Sciatica presence: without sciatica Qualified Code(s): M54.50 - Low back pain, unspecified Disposition: 01 HOME / SELF CARE / HOMELESS Is pt being admited?: No Does the pt Need Aspirin: No Condition: Stable Instructions: Acute Back Pain, Adult Additional Instructions: please use medication as prescribed. may use ice pack, heating pad, rest, epsom salt bath. do not use heat or ice while using tiger balm. follow up with a primary care doctor. return to emergency room for any new or worsening symptoms. Prescriptions: Naproxen 375 mg PO BID PRN #14 tab PRN Reason: pain methOCARBAMOL [Robaxin TAB] 500 mg PO BID PRN #14 tab PRN Reason: muscle spasm/pain Menthol/Camphor [[place] Ointment] 1 applicatio TP BID #18 g Referrals: PRIMARY CAREMD [Primary Care Provider] - 3-5 Days JASNO AVILA II, MD [Staff Physician] - 3-5 Days [facility] [Provider Group] - 3-5 Days Time of Disposition: 11:49 Print Language: [place]
== END 2021-10-28 12:15 | disposition home or self-care (01) ==
LOC: ED 08:56
DX: M54.50 Low back pain, unspecified (principal)
CPT/HCPCS: 99282

== ENCOUNTER 2021-12-29 13:33 | Emergency (ER) | payer MEDICAID ==
[2021-12-29 14:55] VITALS: BP 115/64
== END 2021-12-29 19:00 | disposition left against medical advice (07) ==
LOC: ED 13:33
DX: Z00.00 Encounter for general adult medical examination without abnormal findings (principal); Z53.21 Procedure and treatment not carried out due to patient leaving prior to being seen by health care provider